=== PATIENT | female | born 1980 | race Caucasian/White ===

== ENCOUNTER 2020-07-04 16:08 | Emergency (ER) | payer SELFPAY ==
--- NOTE | 2020-07-04 17:38 | ER ---
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 Coronavirus screen: At this time, the client does not indicate any symptoms associated with coronavirus-19. Ebola Screen: Patient negative for fever greater than or equal to 101.5 degrees Fahrenheit, and additional compatible Ebola Virus Disease symptoms Patient denies exposure to infectious person. Patient denies travel to an Ebola-affected area in the 21 days before illness onset. No symptoms or risks identified at this time. Risk Assessment: Do you want to hurt yourself or someone else? Patient reports no desire to harm self or others. Onset of symptoms was July 02, 2020. 16:26 Method Of Arrival: Ambulatory 16:26 Acuity: MAVERICK 4 16:39 Initial Sepsis Screen: Does the patient meet any 2 criteria? No. Patient's initial tw2 sepsis screen is negative. Does the patient have a suspected source of infection? No. Patient's initial sepsis screen is negative. Triage Assessment: 16:31 General: Appears in no apparent distress. Behavior is calm, cooperative, appropriate tw2 for age. Pain: Complains of pain in right shoulder. 16:37 EENT: No signs and/or symptoms were reported regarding the EENT system. Neuro: Level of tw2 Consciousness is awake, alert, obeys commands, Oriented to person, place, time, situation. Cardiovascular: Patient's skin is warm and dry. Respiratory: Airway is patent Respiratory effort is even, unlabored, Respiratory pattern is regular, symmetrical. GI: No signs and/or symptoms were reported involving the gastrointestinal system. : No signs and/or symptoms were reported regarding the genitourinary system. Derm: No signs and/or symptoms reported regarding the dermatologic system. Musculoskeletal: Circulation, motion, and sensation intact. Range of motion: limited in right shoulder Reports pain in right shoulder since Thursday. 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 - Family history:: not pertinent. - Social history:: Smoking status: . - Hospitalizations: : No recent hospitalization is reported. Screenin:37 Abuse screen: Denies threats or abuse. Nutritional screening: No deficits noted. tw2 Tuberculosis screening: No symptoms or risk factors identified. Fall Risk None identified. Assessment: 16:37 Reassessment: see triage assessment. tw2 17:01 Reassessment: Patient appears in no apparent distress at this time. No changes from tw2 previously documented assessment. Patient and/or family updated on plan of care and expected duration. Pain level reassessed. Patient is alert, oriented x 3, equal unlabored respirations, skin warm/dry/pink. 17:55 Reassessment: Patient appears in no apparent distress at this time. No changes from tw2 previously documented assessment. Patient and/or family updated on plan of care and expected duration. Pain level reassessed. Patient is alert, oriented x 3, equal unlabored respirations, skin warm/dry/pink. 18:03 Reassessment: pt requesting discharge "prescription for pain because Motrin is not tw2 working", provider notified. 18:09 Reassessment: Patient appears in no apparent distress at this time. No changes from tw2 previously documented assessment. Patient and/or family updated on plan of care and expected duration. Pain level reassessed. Patient is alert, oriented x 3, equal unlabored respirations, skin warm/dry/pink. Vital Signs: 16:32 BP 106 / 61; Pulse 88; Resp 18; Temp 98.4(O); Pulse Ox 96% ; Weight 89.36 kg (R); tw2 Height 5 ft. 6 in. (167.64 cm); Pain 10/10; 17:01 BP 114 / 71; Pulse 84; Resp 17; Pulse Ox 97% on R/A; tw2 17:55 BP 120 / 81; Pulse 78; Resp 17; Pulse Ox 99% on R/A; tw2 16:32 Body Mass Index 31.80 (89.36 kg, 167.64 cm) tw2 ED Course: 16:13 Patient arrived in ED. as 16:16 Mathew Ferrari MD is Attending Physician. rn 16:20 Placed in gown. Bed in low position. Call light in reach. Pulse ox on. NIBP on. tw2 16:27 Triage completed. iw 16:29 Romelia Beasley, RN is Primary Nurse. tw2 16:36 Arm band placed on. tw2 17:55 XRAY Shoulder RIGHT 2 view In Process Unspecified. EDMS 18:10 No provider procedures requiring assistance completed. Patient did not have IV access tw2 during this emergency room visit. Administered Medications: No medications were administered Outcome: 17:37 Discharge ordered by . rn 18:10 Discharged to home ambulatory. tw2 18:10 Condition: stable 18:10 Discharge instructions given to patient, Instructed on discharge instructions, follow up and referral plans. medication usage, need for sling Demonstrated understanding of instructions, follow-up care, medications, sling care, cms checks Prescriptions given X 1. 18:10 Patient left the ED. tw2 Signatures: Dispatcher [employer] Marie Kim as Faby Grace RN RN Mathew Ferrari MD MD rn Wise, Tara, RN RN tw2 Corrections: (The following items were deleted from the chart) 16:37 16:31 Pain: Complains of pain in right shoulder tw2 tw2
--- NOTE | 2020-07-04 17:38 | EDPHYS ---
Physician Documentation [facility] Name: Eve Norman Age: 39 yrs Sex: Female : 1980 Arrival Date: 07/04/2020 Time: 16:13 Bed 16 Private MD: ED Physician Mathew Ferrari HPI: 07/04 16:31 This 39 yrs old Female presents to ER via Ambulatory with complaints of rn Shoulder Pain. 16:31 The patient or guardian complains of decreased range of motion, an injury, pain. right rn shoulder. Onset: The symptoms/episode began/occurred 3 day(s) ago. Modifying factors: the symptoms are alleviated by nothing. The symptoms are aggravated by lifting weight, movement, rotation of arm. Severity of symptoms: At their worst the symptoms were moderate, in the emergency department the symptoms are unchanged. The patient has not experienced similar symptoms in the past. 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 Had 2 days off and feels worse. No focal swelling or bruising. No weakness. . 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 - Family history:: not pertinent. - Social history:: Smoking status: . - Hospitalizations: : No recent hospitalization is reported. ROS: 16:31 Constitutional: Negative for fever, chills, and weight loss, Eyes: Negative for injury, rn pain, redness, and discharge, Cardiovascular: Negative for chest pain, palpitations, and edema, Respiratory: Negative for shortness of breath, cough, wheezing, and pleuritic chest pain, Abdomen/GI: Negative for abdominal pain, nausea, vomiting, diarrhea, and constipation, MS/Extremity: + right shoulder injury and pain Skin: Negative for injury, rash, and discoloration, Neuro: Negative for headache, weakness, numbness, tingling, and seizure. Exam: 17:36 Constitutional: This is a well developed, well nourished patient who is awake, alert, rn and in no acute distress. MS/ Extremity: Pulses equal, no cyanosis. Neurovascular intact. Painful ROM right shoulder with rotation and attempting to touch left shoulder. No focal bony tenderness. No deformity. Vital Signs: 16:32 BP 106 / 61; Pulse 88; Resp 18; Temp 98.4(O); Pulse Ox 96% ; Weight 89.36 kg (R); tw2 Height 5 ft. 6 in. (167.64 cm); Pain 10/10; 17:01 BP 114 / 71; Pulse 84; Resp 17; Pulse Ox 97% on R/A; tw2 17:55 BP 120 / 81; Pulse 78; Resp 17; Pulse Ox 99% on R/A; tw2 16:32 Body Mass Index 31.80 (89.36 kg, 167.64 cm) tw2 MDM: 16:16 Patient medically screened. rn 17:31 Differential diagnosis: tendonitis, shoulder separation, ligament injury, strain, rn sprain. Data reviewed: vital signs, nurses notes. Counseling: I had a detailed discussion with the patient and/or guardian regarding: the historical points, exam findings, and any diagnostic results supporting the discharge/admit diagnosis, radiology results, the need for outpatient follow up, to return to the emergency department if symptoms worsen or persist or if there are any questions or concerns that arise at home. Special discussion: I discussed with the patient/guardian in detail that at this point there is no indication for admission to the hospital. It is understood, however, that if the symptoms persist or worsen the patient needs to return immediately for re-evaluation. Further emergent ED testing is not indicated at this point in time. I discussed with the patient/guardian in detail the need to arrange with the PCP or specialist further outpatient testing, MRI. 17:36 Test interpretation: by ED physician or midlevel provider: plain radiologic studies, No medical assistant prn fracture/dislocation right shoulder. . 07/04 16:29 Order name: XRAY Shoulder RIGHT 2 view rn 07/04 17:38 Order name: Sling; Complete Time: 18:09 rn Administered Medications: No medications were administered Disposition: 07/04/20 17:37 Discharged to Home. Impression: Unspecified sprain of right shoulder joint. - Condition is Stable. - Discharge Instructions: Shoulder Sprain, How to Use a Sling. - Prescriptions for Diclofenac Sodium 75 mg Oral Tablet, Delayed Release (E.C.) - take 1 tablet by ORAL route 2 times per day; 20 tablet. - Medication Reconciliation Form, Thank You Letter, Antibiotic Education, Prescription Opioid Use form. - Follow up: Private Physician; When: As needed; Reason: Recheck today's complaints, Re-evaluation by your physician. - Problem is new. - Symptoms have improved. Signatures: Dispatcher [employer] EDFaby Alexandra RN RN iw Mathew Ferrari MD MD rn Wise, Tara, RN RN tw2 Corrections: (The following items were deleted from the chart) 18:10 17:37 07/04/2020 17:37 Discharged to Home. Impression: Unspecified sprain of right tw2 shoulder joint. Condition is Stable. Forms are Medication Reconciliation Form, Thank You Letter, Antibiotic Education, Prescription Opioid Use. Follow up: Private Physician; When: As needed; Reason: Recheck today's complaints, Re-evaluation by your physician. Problem is new. Symptoms have improved. rn
--- NOTE | 2020-07-04 18:24 | RAD REPORT ---
EXAM DESCRIPTION: RAD - Shoulder Right 2 View - 07/04/2020 5:55 pm CLINICAL HISTORY: right shoulder pain/injury COMPARISON: No comparisons FINDINGS: Mild glenohumeral and AC joint arthritic changes. No acute fracture or dislocation evident .
[2020-07-04 18:36] VITALS: TEMP 98.4
[2020-07-04 18:38] VITALS: BP 120/81; O2SAT 99
--- OUTSIDE RECORDS SUMMARY | 2020-07-05 22:04 | XMS REPORT | Summary of Care ---
:1980 Author Name Luann Carbone M.A. Address [place] Physicians Unavailable , Care Team Providers Name Role Phone TREVOR Polanco, THERESA Unavailable Unavailable YURIY Polanco, DMITRY Unavailable Unavailable Whitney BURNETTE, Dmitry Unavailable Unavailable TREVOR BURNETTE [place], THERESA Unavailable Unavailable ADALBERTO BURNETTE [place], DEVEN Cochran Unavailable Unavailable Ana BURNETTE, Jc Unavailable Unavailable HEVER DOLAN, GIDEON I Unavailable Unavailable YURIY BURNETTE, DMITRY Unavailable Unavailable CK BURNETTE, DEEJAY Nassar Unavailable Unavailable ANDRÉS BURNETTE, GONZALO Unavailable Unavailable Unavailable Unavailable Unavailable Functional Status Name Dates Details Functional status health issues are not documented Status: Name Dates Details Cognitive status health issues are not documented Status: Problems Name Dates Details Nausea (787.02, R11.0) Status: Active Large stool (787.7, R19.5) Status: Activ e Pelvic pain (R10.2) Status: Active Abdominal pain (789.00, R10.9) Status: A ctive Endometriosis (617.9, N80.9) Status: Act preethi Postoperative examination (V67.00, Z09) Status: Active Abdominal discomfort, epigastric (789.06, R10.13) Status: Active Gastroesophageal reflux disease (530.81, K21.9) Status: Active Chronic constipation (564.00, K59.09) St atus: Active Change in bowel habits (787.99, R19.4) S tatus: Active Medications Name Dates Details Ketorolac Tromethamine 10 MG Oral Tablet TAKE 1 TABLET EVERY 6 HOURS NEEDED. Quantity: 60 Refills: 0 DMITRY YAN M.D. Start : 04-Oct-2019 Active Tylenol Extra Strength 500 MG TABS Refills: 0 M.D.Active Ibuprofen 600 MG Oral Tablet Refills: 0 M.D.Active traMADol HCl - 50 MG Oral Tablet TAKE 1 TABLET EVERY 6 HOURS NEEDED. Quantity: 60 Refills: 0 DMITRY YAN M.D. Start : 20-Dec-2019 Active Gabapentin 100 MG Oral Capsule TAKE 1 CAPSULE 3 TIMES DAILY. Quantity: 90 Refills: 1 DMITRY YAN M.D. Start : 22-Dec-2019 Active Omeprazole 40 MG Oral Capsule Delayed Release TAKE 1 CAPSULE DAILY. Quantity: 30 Refills: 3 TREVOR Polanco, THERESA Start : 17-Mar-2020 Active Suprep Bowel Prep Kit 17.5-3.13-1.6 GM/177ML Oral Solution DILUTE CONTENTS AND USE DIRECTED FOR BOWEL PREP Quantity: 1 Refills: 0 VIRGINIE MURRAY M.D.RMENDRA Start : 17-Mar-2020 Active 177 ML Bottle Allergies and Adverse Reactions Name Dates Details Biaxin TABS (Allergy) Status: Active sulfa (Allergy) Status: Active Sulfa Drugs (Allergy) Status: Active Past Medical History Name Dates Details Endometriosis (617.9, N80.9) Status: Act preethi History of abnormal cervical Papanicolaou smear (V13.29, Z87 .42) Status: Resolved History of PCOS (polycystic ovarian syndrome) (256.4, E28.2) Status: Resolved Procedures Procedure Dates Details Colonoscopy Date: 17-Mar-2020 Upper Endoscopy Date: 17-Mar-2020 [L] C-Reactive Protein (CRP) Date: 17-Mar-2020 [Q] COMPREHENSIVE METABOLIC PANEL W/eGFR (REFL) Date: [QL] AMYLASE Date: 17-Mar-2020 History of Loop electrosurgical excision procedure Completed History of Salpingectomy Completed History of Tubal ligation bilateral Comp leted Immunization Name Dates Details Immunizations not documented Family History Name Dates Details Family history of hyperlipidemia (V18.19, Z83.438) Status: Active Family history of endometriosis (V19.8, Z84.2) Status: Active Name Dates Details Family history of hypertension (V17.49, Z82.49) Status: Active Family history of diabetes mellitus (V18.0, Z83.3) Status: Active Social History Name Dates Details - Status: Name Dates Details Ex-smoker (finding) Never smoked tobacco (finding) Vital Signs Date Test Result Details No Known Vitals to report Results Date Description Value Details Results not documented Plan of Care Name Dates Details Planned Observations Planned Goals not documented Planned Encounters Appointment; DMITRY YAN M.D. On: 02-Jul-2020 13:30 Instructions Name Dates Details Instructions not documented Encounters Appointment; JC MARTINEZ M.D. On: 16-May-2019 15 :45 Encounter Diagnosis: Problem not documented Appointment; GIDEON KATHLEEN D.O. On: 30-Jun-2019 13:00 Encounter Diagnosis: Problem not documented Appointment; DMITRY YAN M.D. On: 07-Jul-2019 8:50 Encounter Diagnosis: Problem not documented Appointment; GIDEON KATHLEEN D.O. On: 14-Jul-2019 8:30 Encounter Diagnosis: Problem not documented Appointment; DMITRY YAN M.D. On: 14-Jul-2019 9:00 Encounter Diagnosis: Problem not documented Appointment; DMITRY YAN M.D. On: 02-Sep-2019 10:40 Encounter Diagnosis: Problem not documented Appointment; DMITRY YAN M.D. On: 16-Sep-2019 9:50 Encounter Diagnosis: Problem not documented Appointment; DEEJAY STOVER M.D. On: 05-Oct-2019 14:00 Encounter Diagnosis: Problem not documented Appointment; DMITRY YAN M.D. On: 25-Oct-2019 15:2 0 Encounter Diagnosis: Problem not documented Appointment; DMITRY YAN M.D. On: 22-Nov-2019 9:00 Encounter Diagnosis: Problem not documented Appointment; DMITRY YAN M.D. On: 28-Nov-2019 13:30 Encounter Diagnosis: Problem not documented Appointment; DMITRY YAN M.D. On: 30-Nov-2019 14:10 Encounter Diagnosis: Problem not documented Appointment; DMITRY YAN M.D. On: 12-Dec-2019 13:3 0 Encounter Diagnosis: Problem not documented Appointment; DMITRY YAN M.D. On: 13-Dec-2019 14:2 0 Encounter Diagnosis: Problem not documented Appointment; GONZALO BOWEN M.D. On: 03-Jan-2020 10:00 Encounter Diagnosis: Problem not documented Appointment; THERESA MURRAY M.D. On: 17-Mar-2020 8 :30 Encounter Diagnosis: Problem not documented
--- OUTSIDE RECORDS SUMMARY | 2020-07-05 22:04 | XMS REPORT | Summary of Care ---
:1980 Author Name Luann Carbone M.A. Address [place] Physicians Unavailable , Care Team Providers Name Role Phone TREVOR Polanco, THERESA Unavailable Unavailable YURIY Polanco, DMITRY Unavailable Unavailable Tona Flores, Luann Unavailable Unavailable Whitney BURNETTE, Dmitry Unavailable Unavailable TREVOR BURNETTE [place], THERESA Unavailable Unavailable ADALBERTO BURNETTE [place], DEVEN Cochran Unavailable Unavailable Ana BURNETTE, Jc [...] Extra Strength 500 MG TABS Refills: 0 Active Ibuprofen 600 MG Oral Tablet Refills: 0 Active Gabapentin 100 MG Oral Capsule TAKE 1 CAPSULE 3 TIMES DAILY. Quantity: 90 Refills: 1 DMITRY YAN M.D. Start : 22-Dec-2019 Active Omeprazole 40 MG Oral Capsule Delayed Release TAKE 1 CAPSULE DAILY. Quantity: 30 Refills: 3 MURRAY Sherri, THERESA Start : 17-Mar-2020 Active Suprep Bowel Prep Kit 17.5-3.13-1.6 GM/177ML Oral Solution DILUTE CONTENTS AND USE DIRECTED FOR BOWEL PREP Quantity: 1 Refills: 0 MURRAY Aubrey., THERESA Start : 17-Mar-2020 Active 177 ML Bottle [...]
--- OUTSIDE RECORDS SUMMARY | 2020-07-05 22:05 | XMS REPORT | Summary of Care ---
:1980 Author Name Antonia Chong M.A. Address [place] Physicians Unavailable , Care Team Providers Name Role Phone TREVOR Polanco, THERESA Unavailable Unavailable YURIY Polanco, DMITRY Unavailable Unavailable Whitney BURNETTE, Dmitry Unavailable Unavailable TREVOR BURNETTE [place], THERESA Unavailable Unavailable ADALBERTO BURNETTE [place], DEVEN Cochran Unavailable Unavailable Ana BURNETTE, Jc Unavailable Unavailable HEVER DO, GIDEON I Unavailable Unavailable YURIY BURNETTE, DMITRY [...] bowel habits (787.99, R19.4) S tatus: Active Follow-up exam after treatment (V67.9, Z09) Status: Active Medications Name Dates Details Omeprazole 40 MG Oral Capsule Delayed Re lease TAKE 1 CAPSULE DAILY. Quantity: 30 Refills: 3 THERESA MURRAY M.D. Start : 17-Mar-2020 Active traMADol HCl - 50 MG Oral Tablet Tramadol 50mg one po q 8 hours prn pain disp: 20 Refill 1 Quantity: 20 Refills: 1 DMITRY YAN M.D. Start : 01-Jun-2020 Active Motrin IB 200 MG Oral Tablet Motrin 600mg one po 8 hours prn pain Disp: 30 refill:1 Quantity: 30 Refills: 1 DMITRY YAN M.D. Start : 01-Jun-2020 Active Allergies and Adverse Reactions Name Dates Details Biaxin TABS (Allergy) Status: Active sulfa (Allergy) Status: Active Sulfa Drugs (Allergy) Status: Active Past Medical History Name Dates Details Endometriosis (617.9, N80.9) Status: Act preethi History of abnormal cervical Papanicolaou smear (V13.29, Z87 .42) Status: Resolved History of PCOS (polycystic ovarian syndrome) (256.4, E28.2) Status: Resolved Procedures Procedure Dates Details History of Loop electrosurgical excision procedure Completed [...] (finding) Vital Signs Date Test Result Details [id number] Systolic blood pressure 144 mm[Hg] Status: Comments: Location: RUE; Position: Sitting Diastolic blood pressure 101 mm[Hg] Status: Comment s: Location: RUE; Position: Sitting Body height 66 in Status: Weight 203.6 lb Status: Body mass index (BMI) [Ratio] 32.86 kg/m2 Status: Body surface area Derived from formula 2.02 m2 S tatus: Body temperature 97.1 f Status: Comments: Me thod: Temporal Heart Rate 112 /min Status: Results Date Description Value Details Results not documented Plan of Care Name Dates Details Planned Observations Planned Goals not documented Planned Encounters Appointment; [facility] On: 05-Jun-2020 14:30 Appointment; DMITRY YAN M.D. On: 15-Jun-2020 11:0 0 Interventions Provided Medication ChangesMotrin IB 200 MG Oral Tablet - StarttraMADol HCl - 50 MG Oral Tablet - Start Instructions Name Dates Details Instructions not documented [...] 8 :30 Encounter Diagnosis: Problem not documented Appointment; DMITRY YAN M.D. On: 07-May-2020 10:2 0 Encounter Diagnosis: Problem not documented Appointment; DMITRY YAN M.D. On: 01-Jun-2020 9:50 Encounter Diagnosis: Problem not documented
--- OUTSIDE RECORDS SUMMARY | 2020-07-05 22:05 | XMS REPORT | Summary of Care ---
:1980 Author Name DMITRY YAN M.D. Address Unavailable Unavailable , Care Team Providers Name Role Phone TREVOR Polanco, THERESA Unavailable Unavailable YURIY Polanco, DMITRY Unavailable Unavailable Whitney BURNETTE, Dmitry Unavailable Unavailable TREVOR BURNETTE [place], THERESA Unavailable Unavailable ADALBERTO BURNETTE [place], DEVEN Cochran Unavailable Unavailable Ana BURNETTE, Jc [...] Large stool (787.7, R19.5) Status: Activ e Abdominal pain (789.00, R10.9) Status: A ctive Postoperative examination (V67.00, Z09) Status: Active Abdominal discomfort, epigastric (789.06, R10.13) Status: Active Gastroesophageal reflux disease (530.81, K21.9) Status: Active Chronic constipation (564.00, K59.09) St atus: Active Change in bowel habits (787.99, R19.4) S tatus: Active Follow-up exam after treatment (V67.9, Z09) Status: Active Endometriosis (617.9, N80.9) Status: Act preethi Pelvic pain (R10.2) Status: Active Medications Name Dates Details Omeprazole 40 MG Oral Capsule Delayed Re lease TAKE 1 CAPSULE DAILY. Quantity: 30 Refills: 3 THERESA MURRAY M.D. Start : 17-Mar-2020 Active traMADol HCl - 50 MG Oral Tablet Tramadol 50mg one po q 8 hours prn pain disp: 20 Refill 1 Quantity: 20 Refills: 1 DMITRY YAN M.D. Start : 01-Jun-2020 Active Ibuprofen 600 MG Oral Tablet TAKE 1 TABLET EVERY 8 HOURS NEEDED. Quantity: 30 Refills: 1 DMITRY YAN M.D. [...] (finding) Vital Signs Date Test Result Details [id number] Systolic blood pressure 144 mm[Hg] Status: Comments: [...] Goals not documented Planned Encounters Appointment; [facility] On: 05-Jun-2020 14:30 Appointment; JC MARTINEZ M.D. On: 06-Jun-2020 9:3 0 Appointment; DMITRY YAN M.D. On: 15-Jun-2020 11:0 0 Appointment; THERESA MURRAY M.D. On: 06-Jul-2020 7: 30 Interventions Provided Medication ChangesIbuprofen 600 MG Oral Tablet - StarttraMADol HCl - 50 MG Oral Tablet - StartPlanPlan: Ebdometriosis/pelvic pain: discussed treatment options. Pt with several medical therapies attempted. Discussed hyst but patient would prefer to avoid at this time. Rx Lupron, risks, SE's discussed. Pelvic ultrasound ordered.RTC 2-3 weeks for WWE. Instructions Name Dates Details Instructions not documented [...]
--- OUTSIDE RECORDS SUMMARY | 2020-07-05 22:05 | XMS REPORT | Summary of Care ---
:1980 Author Name Yair LulúRyland Address Unavailable Unavailable , Care Team Providers Name Role Phone TREVOR Polanco, THERESA Unavailable Unavailable YURIY Polanco, DMITRY Unavailable Unavailable Whitney BURNETTE, Dmitry Unavailable Unavailable TREVOR BURNETTE [place], THERESA Unavailable Unavailable ADALBERTO BURNETTE [place], DEVEN Cochran Unavailable Unavailable Ana BURNETTE, Jc [...] (finding) Vital Signs Date Test Result Details [id number] Systolic blood pressure 144 mm[Hg] Status: Comments: [...] Goals not documented Planned Encounters Appointment; [facility] On: 05-Jun-2020 14:30 Appointment; JC MARTINEZ M.D. [...] Encounter Diagnosis: Problem not documented Appointment; DMITRY AYN M.D. On: 01-Jun-2020 9:50 Encounter Diagnosis: Problem not documented
--- OUTSIDE RECORDS SUMMARY | 2020-07-05 22:05 | XMS REPORT | Summary of Care ---
:1980 Author Name Hoda Lyles M.A. Address Unavailable Unavailable , Care Team Providers Name Role Phone TREVOR Polanco, THERESA Unavailable Unavailable YURIY Polanco, DMITRY Unavailable Unavailable Whitney BURNETTE, Dmitry Unavailable Unavailable TREVOR BURNETTE [place], THERESA Unavailable Unavailable ADALBERTO BURNETTE [place], DEVEN Cochran Unavailable Unavailable Ana BURNETTE, Jc [...] traMADol HCl - 50 MG Oral Tablet Ultram 50 mg one po q 8 hours prn for pain disp: 20 , no refills Quantity: 20 Refills: 1 DMITRY YAN M.D. [...] (finding) Vital Signs Date Test Result Details [id number] Systolic blood pressure 144 mm[Hg] Status: Comments: [...] Appointment; DMITRY YAN M.D. On: 02-Jul-2020 13:30 Interventions Provided Medication ChangestraMADol HCl - 50 MG Oral Tablet - [...]
--- OUTSIDE RECORDS SUMMARY | 2020-07-05 22:06 | XMS REPORT | Summary of Care ---
:1980 Author Name JUAN Polanco, JC Address [facility] Unavailable , Care Team Providers Name Role Phone TREVOR Polanco, THERESA Unavailable Unavailable YURIY Polanco, DMITRY Unavailable Unavailable JUAN Polanco, JC Unavailable Unavailable Whitney BURNETTE, Dmitry Unavailable Unavailable TREVOR BURNETTE [place], THERESA Unavailable Unavailable ADALBERTO BURNETTE [place], DEVEN Cochran Unavailable Unavailable Juan BURNETTE, Jc Unavailable Unavailable HEVER DO, GIDEON [...] Act preethi Pelvic pain (R10.2) Status: Active Lumbago (724.2, M54.5) Status: Active Medications Name Dates Details Omeprazole 40 MG Oral Capsule Delayed Re lease TAKE 1 CAPSULE DAILY. Quantity: 30 Refills: 3 THERESA MURRAY M.D. Start : 17-Mar-2020 Active traMADol HCl - 50 MG Oral Tablet Tramadol 50mg one po q 8 hours prn pain disp: 20 Refill 1 Quantity: 20 Refills: 1 YURIY M.D., DMITRY Start : 01-Jun-2020 Active Ibuprofen 600 MG Oral Tablet TAKE 1 TABLET EVERY 8 HOURS NEEDED. Quantity: 30 Refills: 1 DMITRY YAN M.D. Start : 01-Jun-2020 Active Cyclobenzaprine HCl - 5 MG Oral Tablet TAKE 1 TABLET AT BEDTIME as needed for spasm Quantity: 20 Refills: 0 JUAN Polanco, JC Start : 06-Jun-2020 Active Allergies and Adverse Reactions Name Dates [...] (finding) Vital Signs Date Test Result Details :35 Systolic blood pressure 133 mm[Hg] Status: Comments: Location: [facility]; Position: Sitting Diastolic blood pressure 88 mm[Hg] Status: Comment s: Location: [facility]; Position: Sitting Body height 66 in Status: Weight 204 lb Status: Body mass index (BMI) [Ratio] 32.93 kg/m2 Status: Body surface area Derived from formula 2.02 m2 S tatus: Body temperature 97.5 f Status: Comments: Me thod: Temporal Heart Rate 70 /min Status: [id number] Systolic blood pressure 144 mm[Hg] Status: Comments: Location: [facility]; Position: Sitting Diastolic blood pressure 101 mm[Hg] Status: Comment s: Location: [facility]; Position: Sitting Body height 66 in Status: [...] Observations Planned Goals not documented Planned Encounters Physical Therapy Referral Appointment; [facility] SEO TEAM LEAD On: 13-Jun-2020 13:45 Appointment; DMITRY YAN M.D. On: 15-Jun-2020 11:0 0 Appointment; THERESA MURRAY M.D. On: 06-Jul-2020 7: 30 Appointment; JC MARTINEZ M.D. On: 18-Jul-2020 9: 30 Interventions Provided Medication ChangesCyclobenzaprine HCl - 5 MG Oral Tablet - StartPlanLumbago: Exam benign, patient stable, no red flag signs, SLR negative X-ray of lumbar spine performed, prelim result read by me, no gross acute fracture dislocations. pending official reportReassured, options discussed, Trial of Current management, Activity modification, Heat pads, stretching exercises as tolerated,Referral to PT given, RTO 4-6 weeks. Sooner if needed Instructions Name Dates Details Instructions not documented Encounters Appointment; JC MARITNEZ M.D. On: 16-May-2019 15 :45 Encounter Diagnosis: [...] 01-Jun-2020 9:50 Encounter Diagnosis: Problem not documented Appointment; JC MARTINEZ M.D. On: 06-Jun-2020 9:3 0 Encounter Diagnosis: Problem not documented
--- OUTSIDE RECORDS SUMMARY | 2020-07-05 22:06 | XMS REPORT | Summary of Care ---
:1980 Author Name JUAN Polanco, JC Address [facility] Unavailable , Care Team Providers Name Role Phone TREVOR Polanco, THERESA Unavailable Unavailable YURIY Polanco, DMITRY Unavailable Unavailable JUAN Polanco, JC Unavailable Unavailable Whitney BURNETTE, Dmitry Unavailable Unavailable TREVOR BURNETTE [place], THERESA Unavailable Unavailable ADALBERTO BURNETTE [place], DEVEN Cochran Unavailable Unavailable Juan BURNETTE, Jc Unavailable Unavailable HEVER DO, GIDEON I Unavailable Unavailable YURIY BURNETTE, DIMTRY Unavailable Unavailable CK BURNETTE, DEEJAY Nassar Unavailable [...] thod: Temporal Heart Rate 70 /min Status: [id number] Systolic blood pressure 144 mm[Hg] Status: Comments: Location: [facility]; Position: Sitting Diastolic blood pressure 101 mm[Hg] Status: Comment s: Location: [facility]; Position: Sitting Body height 66 in Status: Weight 203.6 lb Status: Body mass index (BMI) [Ratio] 32.86 kg/m2 Status: Body surface area Derived from formula 2.02 m2 S tatus: Body temperature 97.1 f Status: Comments: Me thod: Temporal Heart Rate 112 /min Status: Results Date Description Value Details 06-Jun-20209:46 [U] XRAY SPINE LUMBOSACRAL 2 OR 3 VWS 72 100 XR SPINE LUMBOSACRAL 2 OR 3 VWS EXAM: XR LUMBAR SPINE 2 VIEWS DATE: 06/06/2020 10:00 AM CDT INDICATION: Back pa in x2 mos COMPARISON: None. TECHNIQUE: AP and lateral radiographs of the lumbar spine FINDINGS: 5 lumbar type, non-rib bearing shayan tebral bodies are present. Satisfactory alignment of the lumbar spine. Vertebral body and disc h eights are maintained. Small anterior verte bral osteophytes upper lumbar spine. Mild facet a rthropathy of the lower lumbar spine. Right upper quadrant surgical clips. IMPRESSION: 1. Mild degen erative disc disease of the upper lumbar spin e.2. Mild facet arthropathy of the lower lumbar spine 06/06/2020 10:23 AM CDT Tanner Espitia Plan of Care Name Dates Details Planned Observations Planned Goals not documented Planned Encounters Appointment; [facility] TRENCH SHOVEL OPERATOR On: 13-Jun-2020 13:45 Appointment; DMITRY YAN M.D. On: 15-Jun-2020 11:0 0 Appointment; THERESA MURRAY M.D. On: 06-Jul-2020 7: 30 Appointment; JC MARTINEZ M.D. On: 18-Jul-2020 9: 30 Interventions Provided Labs/Procedures/Imaging[U] XRAY SPINE LUMBOSACRAL 2 OR 3 VWS [id number]; Done: 06 Jun 2020Discussion/SummaryDear JACINDA ESPITIA,Your test results are as follows: X- ray of your lumbar spine showed no acute fracture or dislocations. Chronic age related degenerative changes noted. Thank you Instructions Name Dates Details Instructions not documented Encounters Appointment; JC MARTINEZ M.D. On: 16-May-2019 15 :45 Encounter Diagnosis: Problem not documented Appointment; GIDEON KATHLEEN D.O. On: 30-Jun-2019 13:00 Encounter Diagnosis: Problem not documented Appointment; DMITRY AYN M.D. On: 07-Jul-2019 8:50 Encounter Diagnosis: Problem [...]
--- OUTSIDE RECORDS SUMMARY | 2020-07-05 22:07 | XMS REPORT | Summary of Care ---
:1980 Author Name JUAN Polanco, JC Address [facility] Unavailable , Care Team Providers Name Role Phone TREVOR Polanco, THERESA Unavailable Unavailable YURIY Polanco, DMITRY Unavailable Unavailable JUAN Polanco, JC Unavailable Unavailable Whitney BURNETTE, Dmitry Unavailable Unavailable TREVOR BURNETTE [place], THERESA Unavailable Unavailable ADALBERTO BURNETTE [place], DEVEN Cochran Unavailable Unavailable Juan BURNETTE, Jc [...] Dates Details - Status: Name Dates Details Never smoked tobacco (finding) Ex-smoker (finding) Vital Signs Date Test Result Details [...] thod: Temporal Heart Rate 70 /min Status: [id number] Systolic blood pressure 144 mm[Hg] Status: Comments: Location: [facility]; Position: Sitting Diastolic blood pressure 101 mm[Hg] Status: Comment s: Location: [facility]; Position: Sitting Body height 66 in Status: [...] documented Planned Encounters Physical Therapy Referral Appointment; [facility], ROTOGRAVURE PRESS OPERATOR On: 13-Jun-2020 13:45 Appointment; DMITRY YAN M.D. On: 15-Jun-2020 11:0 0 Appointment; THERESA MURRAY M.D. On: 06-Jul-2020 7: 30 Appointment; JC MARTINEZ M.D. On: 18-Jul-2020 9: 30 Interventions Provided Medication ChangesCyclobenzaprine HCl - 5 MG Oral Tablet - Start Labs/Procedures/ImagingTobacco Use Screening; Done: 08 Jun 2020PlanLumbago: Exam benign, patient stable, no red flag signs, SLR negative X-ray of lumbar spine performed, prelim result read by me, no gross acute fracture dislocations. chelle mcgowan official reportReassured, options discussed, Trial of Current [...]
--- OUTSIDE RECORDS SUMMARY | 2020-07-05 22:07 | XMS REPORT | Summary of Care ---
:1980 Author Name Ryland Mazariegos R.N. Address Unavailable Unavailable , Care Team Providers Name Role Phone TREVOR Polanco, THERESA Unavailable Unavailable YURIY Polanco, DMITRY Unavailable Unavailable JUAN Polanco, JC Unavailable Unavailable Yair Chino, Ryland Unavailable Unavailable Whitney BURNETTE, Dmitry Unavailable Unavailable TREVOR BURNETTE [place], THERESA Unavailable Unavailable ADALBERTO BURNETTE [place], DEVEN Cochran Unavailable Unavailable Juan BURNETTE, Jc Unavailable Unavailable KATHLEEN DO, GIDEON I Unavailable Unavailable YURIY BURNETTE, DMITRY Unavailable Unavailable CK BURNETTE, DEEJAY G Unavailable Unavailable ANDRÉS BURNETTE, GONZALO Unavailable Unavailable [...] Refill 1 Quantity: 20 Refills: 1 YURIY Polanco, DMITRY Start : 01-Jun-2020 Active Ibuprofen 600 MG Oral Tablet TAKE 1 TABLET EVERY 8 HOURS NEEDED. Quantity: 30 Refills: 1 YURIY Polanco, DMITRY Start : 01-Jun-2020 Active Cyclobenzaprine HCl - 5 MG Oral Tablet TAKE 1 TABLET AT BEDTIME as needed for spasm Quantity: 20 Refills: 0 JUAN Polanco, JC Start : 06-Jun-2020 Active Lupron Depot (3-Month) 11.25 MG Intramuscular Kit Inject 11.25mg IM every 3 months as directed Quantity: 1 Refills: 1 YURIY Polanco, DMITRY Start : 15-Jun-2020 Active Lupron Depot 3.75 MG Intramuscular Kit Inject 3.75 mg IM every month for 6 months Quantity: 1 Refills: 5 YURIY Polanco, DMITRY Start : 22-Jun-2020 Active Allergies and Adverse Reactions Name Dates [...] (finding) Vital Signs Date Test Result Details 06-Jun-20209:35 Systolic blood pressure 133 mm[Hg] Status: Comments: [...] thod: Temporal Heart Rate 70 /min Status: [id number] Systolic blood pressure 144 mm[Hg] Status: Comments: [...] Planned Goals not documented Planned Encounters Appointment; THERESA MURRAY M.D. On: 06-Jul-2020 7: 30 Appointment; JC MARTINEZ M.D. On: 18-Jul-2020 9: 30 Interventions Provided Medication ChangesLupron Depot 3.75 MG Intramuscular Kit - Start Instructions Name Dates Details Instructions [...] 13:30 Encounter Diagnosis: Problem not documented Appointment; DMTIRY YAN M.D. On: 30-Nov-2019 14:10 Encounter Diagnosis: [...] 9:3 0 Encounter Diagnosis: Problem not documented Appointment; [facility] LEATHER CRAFTSMAN On: 13-Jun-2020 13:45 Encounter Diagnosis: Problem not documented Appointment; DMITRY YAN M.D. On: 18-Jun-2020 9:20 Encounter Diagnosis: Problem not documented
--- OUTSIDE RECORDS SUMMARY | 2020-07-05 22:07 | XMS REPORT | Summary of Care ---
:1980 Author Name Omega Page Address [facility] Unavailable , Care Team Providers Name Role Phone TREVOR Polanco, THERESA Unavailable Unavailable YURIY Polanco, DMITRY Unavailable Unavailable JUAN Polanco, JC Unavailable Unavailable Page Duff Unavailable Unavailable Whitney BURNETTE, Dmitry Unavailable Unavailable TREVOR BURNETTE [place], THERESA Unavailable Unavailable ADALBERTO BURNETTE [place], DEVEN Cochran Unavailable Unavailable Juan BURNETTE, Jc Unavailable Unavailable KATHLEEN DO, GIDEON I Unavailable Unavailable YURIY BURNETTE, DMITRY Unavailable Unavailable CK BURNETTE, DEEJAY Nsasar Unavailable Unavailable ANDRÉS BURNETTE, GONZALO Unavailable Unavailable [...] needed for spasm Quantity: 20 Refills: 0 SAFDESHAWN Polanco, JC Start : 06-Jun-2020 Active Allergies [...] tatus: Body temperature 97.5 f Status: Comments: Dc thod: Temporal Heart Rate 70 /min Status: [id number] Systolic blood pressure 144 mm[Hg] Status: Comments: Location: [facility]; Position: Sitting Diastolic blood pressure 101 mm[Hg] Status: Comment s: Location: [facility]; Position: Sitting Body height 66 in Status: [...] Goals not documented Planned Encounters Appointment; [facility] CENTER MEDICAL DIRECTOR On: 13-Jun-2020 13:45 Appointment; DMITRY YAN M.D. On: 15-Jun-2020 11:0 0 Appointment; THERESA MURRAY M.D. On: 06-Jul-2020 7: 30 Appointment; JC MARTINEZ M.D. On: 18-Jul-2020 9: 30 Instructions Name Dates Details Instructions not documented [...]
== END 2020-07-04 18:10 | disposition home or self-care (01) ==
LOC: ER 16:08
DX: S43.401A Unspecified sprain of right shoulder joint, initial encounter (principal); X58.XXXA Exposure to other specified factors, initial encounter; Y93.89 Activity, other specified; Y92.89 Other specified places as the place of occurrence of the external cause; Z88.2 Allergy status to sulfonamides; Z88.6 Allergy status to analgesic agent
CPT/HCPCS: 99283